=== PATIENT | female | born 1955 | race Caucasian/White ===

== ENCOUNTER 2017-09-27 14:00 | Emergency (ER) | payer BC ==
--- NOTE | 2017-09-27 14:42 | EDM.PDOC ---
ED HPI GENERAL MEDICAL PROBLEM - General Chief Complaint: Upper Extremity Injury/Pain Stated Complaint: LEFT SIDED NUMBNESS AND TINGLING Time Seen by Provider: 09/27/17 14:08 - History of Present Illness INITIAL COMMENTS - FREE TEXT/NARRATIVE: HISTORY AND PHYSICAL: History of present illness: The patient is a 62 year-old female with a history of hypertension and fibromyalgia who also has arthritides and follows with Dr. Silvestre, as well as with Dr. Dasilva at [facility] and Yvonne our nurse practitioner in our clinic and presents today with an episode of spastic movement of her left forearm and hand associated with numbness and tingling which lasted about 2 minutes the patient says she had a normal morning and was at [employer] when this occurred and she has had no systemic complaints previously of fever chills chest pain shortness of breath abdominal pain neurosensory changes weakness head neck or back pain. When it started to occur she had no head or neck pain and she felt she could not control her forearm and hand but it did not involve her proximal left arm or shoulder. She said it was not particularly painful but it was awkward and stressful. The symptoms abated and have not returned and she has no pain numbness tingling or neurosensory changes/weakness in her left upper extremity. When specifically asked if the sensation changes or in a stripe -like fashion or circumferential she says she cannot answer. She did not feel that her forearm and hand were week she just felt like they were spastic and she could not control them. This symptomatology did not occur on her right side or in her legs and she felt dizzy lightheaded nor did she pass out or blackout. 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 She does not smoke or do any street drugs and she only occasionally drinks beer. She's been eating and drinking normally. She says that with her motorcycle training she has had some falls on the bike but nothing she saw a provider for nor did she hit her head or directly impact her neck. She has no known back or neck problems and no disc disease that she is aware of. The patient's takes gabapentin as prescribed for her fibromyalgia and in the past her fibromyalgia has not manifested with these types of symptoms. Really she is asymptomatic. Review of systems: As per history of present illness and below otherwise all systems reviewed and negative. Past medical history: As per history of present illness and as reviewed below otherwise noncontributory. Surgical history: As per history of present illness and as reviewed below otherwise noncontributory. Social history: No reported history of drug or alcohol abuse. Family history: As per history of present illness and as reviewed below otherwise noncontributory. Physical exam: General: Well-developed well-nourished female who is nontoxic who is speaking clearly and easily in ED and vital signs are noted by me. HEENT: Atraumatic, normocephalic, pupils reactive, negative for conjunctival pallor or scleral icterus, mucous membranes moist, throat clear, neck supple, nontender, trachea midline. There is no evidence of any facial droop EOMs are intact and there is no cervical adenopathy or nuchal rigidity Lungs: Clear to auscultation, breath sounds equal bilaterally, chest nontender. Heart: S1S2, regular, and rhythm no overt NABS Negative for costovertebral tenderness. Pelvis: Deferred Genitourinary: Deferred. Rectal: Deferred. Extremities: Atraumatic full range of motion without defects or deficits and there is no visible evidence of any swelling compartment changes erythema warmth skin changes or bony changes of the left upper extremity. The legs are, negative for cords or calf pain. Neurovascular unremarkable. Neuro: Awake, alert, oriented. Cranial nerves II through XII unremarkable. Cerebellum unremarkable. Motor and sensory unremarkable throughout. Exam nonfocal. There is no evidence of any facial changes or facial droop, speech changes, motor is 5/5 throughout and sensory is grossly intact. There is normal tone throughout all extremities. 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 He have not recurred. We will go ahead and do a CT scan of the C-spine looking for bony changes arthritic changes that can be identified that may be contributing to a nerve root pathology but they are aware that going down the line in evaluating this further she may need an MRI of the C-spine as well as the brain. We will check electrolytes. Patient does not have any discomfort at this time and has a provider, Dr. Dasilva, that she can see this week for further evaluation of these events. She is already on gabapentin at a dose she is comfortable with. I discussed the CT scan and lab test results patient. It appears that she does have significant degenerative changes in her C-spine more prominently on the left as well as narrowed disc heights. She understands that there is no emergent reason to address this today but that should be addressed sometime this week with Dr. Dasilva in the clinic and an MRI as an outpatient should be scheduled. We discussed doing a short burst of steroids but she feels uncomfortable with new medications as she has had heightened sensitivities to medications in general. I have stressed reasons to return to the ED and to do all activities more slowly and if there is any tingling numbness pain or spasm that she should stop doing that activity. Impression: Episode of spastic movement of left forearm and hand with paresthesia, resolved prior to admission, advanced degenerative changes of the C-spine Definitive disposition and diagnosis as appropriate pending reevaluation and review of above. - Related Data Allergies Allergy/AdvReac Type Severity Reaction Status Date / Time No Known Allergies Allergy Verified 09/27/17 14:08 Home Meds: Home Meds Cyanocobalamin/FA/Pyridoxine [Folbic] 2.5 mg PO DAILY 09/27/17 [History] DULoxetine [Cymbalta] 1 cap PO DAILY 09/27/17 [History] Gabapentin [Neurontin] 600 mg PO TID 09/27/17 [History] Losartan [Cozaar] 50 mg PO DAILY 09/27/17 [History] Meloxicam 7.5 mg PO BID 09/27/17 [History] Theanine [l-Theanine] 200 mg PO DAILY 09/27/17 [History] Past Medical History HEENT History: Reports: Impaired Vision, Other (See Below) Other HEENT History: wears glasses Cardiovascular History: Reports: Heart Murmur, Hypertension Other Cardiovascular History: states has "rt atrial enlargement" Respiratory History: Reports: None Gastrointestinal History: Reports: None Genitourinary History: Reports: None 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: Musculoskeletal History: Reports: Back Pain, Chronic, Fibromyalgia, RA Neurological History: Reports: None Psychiatric History: Reports: Depression Endocrine/Metabolic History: Reports: Osteoporosis Hematologic History: Reports: None Immunologic History: Reports: None Oncologic (Cancer) History: Reports: None Dermatologic History: Reports: None - Infectious Disease History Infectious Disease History: Reports: Chicken Pox, Mumps - Past Surgical History Head Surgeries/Procedures: Reports: None HEENT Surgical History: Reports: None Cardiovascular Surgical History: Reports: None Respiratory Surgical History: Reports: None GI Surgical History: Reports: Appendectomy Female Surgical History: Reports: Hysterectomy Endocrine Surgical History: Reports: None Neurological Surgical History: Reports: None Musculoskeletal Surgical History: Reports: None Oncologic Surgical History: Reports: None Dermatological Surgical History: Reports: None Social & Family History - Family History Family Medical History: Noncontributory Review of Systems - Review of Systems Review Of Systems: ROS reveals no pertinent complaints other than HPI. ED EXAM, GENERAL - Physical Exam Exam: See Below (See dictation) Course - Vital Signs Last Recorded V/S: Last Vital Signs Temp 36.3 C 09/27/17 15:25 Pulse 65 09/27/17 15:25 Resp 18 09/27/17 15:25 BP 136/79 09/27/17 15:25 Pulse Ox 97 09/27/17 15:25 - Orders/Labs/Meds Orders: Active Orders 24 hr Category Date Time Status EKG Documentation Completion [RC] STAT Care 09/27/17 14:31 Active Cervical Spine wo Cont [CT] Stat Exams 09/27/17 14:32 Taken UA W/MICROSCOPIC [URIN] Stat Lab 09/27/17 15:22 Ordered Labs: Laboratory Tests 09/27/17 09/27/17 09/27/17 Range/Units 14:40 14:40 15:22 WBC 7.18 (4.0-11.0) K/uL RBC 4.93 (4.30-5.90) M/uL Hgb 14.6 (12.0-16.0) g/dL Hct 43.1 (36.0-46.0) % MCV 87.4 (80.0-98.0) fL MCH 29.6 (27.0-32.0) pg MCHC 33.9 (31.0-37.0) g/dL RDW Std Deviation 42.9 (28.0-62.0) fl RDW Coeff of Luis Daniel 14 (11.0-15.0) % Plt Count 231 (150-400) K/uL MPV 10.70 (7.40-12.00) fL Neut % (Auto) 57.0 (48.0-80.0) % Lymph % (Auto) 33.0 (16.0-40.0) % Elliott % (Auto) 7.7 (0.0-15.0) % Eos % (Auto) 1.9 (0.0-7.0) % Baso % (Auto) 0.4 (0.0-1.5) % Neut # (Auto) 4.1 (1.4-5.7) K/uL Lymph # (Auto) 2.4 (0.6-2.4) K/uL Elliott # (Auto) 0.6 (0.0-0.8) K/uL Eos # (Auto) 0.1 (0.0-0.7) K/uL Baso # (Auto) 0.0 (0.0-0.1) K/uL Nucleated RBC % 0.0 /100WBC Nucleated RBCs # 0 K/uL Sodium 139 (136-145) mmol/L Potassium 4.0 (3.5-5.1) mmol/L Chloride 103 (98-107) mmol/L Carbon Dioxide 27.4 (21.0-32.0) mmol/L BUN 21 H (7.0-18.0) mg/dL Creatinine 0.8 (0.6-1.0) mg/dL Est Cr Clr Drug Dosing 61.86 mL/min Estimated GFR (MDRD) > 60.0 ml/min Glucose 94 (74-106) mg/dL Calcium 9.2 (8.5-10.1) mg/dL Magnesium 1.9 (1.5-2.0) mg/dL Total Bilirubin 0.4 (0.2-1.0) mg/dL AST 17 (15-37) IU/L ALT 29 (14-63) IU/L Alkaline Phosphatase 54 (46-116) U/L Total Protein 6.9 (6.4-8.2) g/dL Albumin 3.9 (3.4-5.0) g/dL Globulin 3.0 (2.0-3.5) g/dL Albumin/Globulin Ratio 1.3 (1.3-2.8) Urine Color YELLOW Urine Appearance CLEAR Urine pH 6.0 (5.0-8.0) Ur Specific Rockledge 1.020 (1.001-1.035) Urine Protein NEGATIVE (NEGATIVE) mg/dL Urine Glucose (UA) NEGATIVE (NEGATIVE) mg/dL Urine Ketones NEGATIVE (NEGATIVE) mg/dL Urine Occult Blood NEGATIVE (NEGATIVE) Urine Nitrite NEGATIVE (NEGATIVE) Urine Bilirubin NEGATIVE (NEGATIVE) Urine Urobilinogen 0.2 (<2.0) EU/dL Ur Leukocyte Esterase NEGATIVE (NEGATIVE) Urine RBC 0-1 (0-2/HPF) Urine WBC 0-1 (0-5/HPF) Ur Epithelial Cells FEW (NONE-FEW) Urine Bacteria RARE (NEGATIVE) Departure - Departure Time of Disposition: 15:47 Disposition: Home, Self-Care 01 Condition: Good Clinical Impression: Paresthesia of arm, Abnormal motor activity - Discharge Information Forms: ED Department Discharge Additional Instructions: The following information is given to patients seen in the emergency department who are being discharged to home. This information is to outline your options for follow-up care. We provide all patients seen in our emergency department with a follow-up referral. The need for follow-up, as well as the timing and circumstances, are variable depending upon the specifics of your emergency department visit. If you don't have a primary care physician on staff, we will provide you with a referral. We always advise you to contact your personal physician following an emergency department visit to inform them of the circumstance of the visit and for follow-up with them and/or the need for any referrals to a consulting specialist. The emergency department will also refer you to a specialist when appropriate. This referral assures that you have the opportunity for followup care with a specialist. All of these measure are taken in an effort to provide you with optimal care, which includes your followup. Under all circumstances we always encourage you to contact your private physician who remains a resource for coordinating your care. When calling for followup care, please make the office aware that this follow-up is from your recent emergency room visit. If for any reason you are refused follow-up, please contact the [facility] emergency department at and ask to speak to the emergency department charge nurse. [facility] [address] [place] [address] [facility] Primary [facility]- [facility] Medicine and [facility] [address] [place] [id number] Please contact your provider Dr. Dasilva at [facility] to discuss further testing such as MRI of your neck as we discussed. Do all activities with her upper body slowly and stop with any signs of numbness tingling or weakness or pain. Return to ER as needed as discussed. Continue all home medication - My Orders Last 24 Hours: My Active Orders 09/27/17 14:31 EKG Documentation Completion [RC] STAT 09/27/17 14:32 Cervical Spine wo Cont [CT] Stat 09/27/17 15:22 UA W/MICROSCOPIC [URIN] Stat - Assessment/Plan Last 24 Hours: My Active Orders 09/27/17 14:31 EKG Documentation Completion [RC] STAT 09/27/17 14:32 Cervical Spine wo Cont [CT] Stat 09/27/17 15:22 UA W/MICROSCOPIC [URIN] Stat
[2017-09-27 15:09] LABS: CHLORIDE,CL 103 mmol/L (98-107); SODIUM,NA 139 mmol/L (136-145)
[2017-09-27 17:09] VITALS: BP 130/76
--- NOTE | 2017-09-29 13:14 | CT ---
EXAM DATE: 09/27/17 PATIENT'S AGE: 62 Patient: SHAINA SEBASTIAN Facility: [place], [place] Site . Site : 1955 Study: CT Spine Cervical wo cont [id number]/[id number] 3:09:42 PM Ordering Physician: Marcia Marcus Final Report: Indication: Neck pain. Left-sided numbness Technique: Noncontrast axial CT of the cervical spine with coronal and sagittal reformats are provided. No comparisons. Findings: The overall stature, alignment of the cervical spine is within normal limits. No convincing evidence of suspicious bony fragments narrowing the central canal or neural foramina. Prevertebral soft tissues, cervical airway, dens and lateral masses are within normal limits. There is notable severe left C5-6 and C6-7 foraminal narrowing due to asymmetric uncovertebral joint and facet arthropathy. Central canal appears patent throughout the visualized cervical spine. Milder degenerative changes scattered throughout the remainder of the cervical spine. Impression: 1. No convincing radiographic evidence of acute osseous injury. 2. Severe left C5-6 and C6-7 foraminal narrowing. 3. Mild degenerative changes scattered throughout the remainder of the cervical spine. Please note that all CT scans at this facility use dose modulation, iterative reconstruction, and/or weight-based dosing when appropriate to reduce radiation dose to as low as reasonably achievable. Dictated by El Brooke MD @ Sep 27 2017 7:42PM (Electronic Signature) Report Signed by Proxy. PEPITO
== END 2017-09-27 16:00 | disposition home or self-care (01) ==
LOC: MW.ED 14:00
DX: R20.2 Paresthesia of skin (principal); R29.818 Other symptoms and signs involving the nervous system; I10 Essential (primary) hypertension
CPT/HCPCS: 36415; 72125; 72125-26; 80053; 81001; 83735; 85025; 93005; 99283; 99284-25

== ENCOUNTER 2020-11-22 06:33 | Day surgery (SDC) | payer BC ==
[~2020-11-22 06:33] MED LIST: Lactated Ringers 1,000 ML IV SCH; Sodium Chloride 0.9% 10 ML SDV IV PRN; Sodium Chloride 0.9% 10 ML Syringe FLUSH PRN; Sodium Chloride 0.9% 2.5 ML Syringe FLUSH PRN
[2020-11-22] MEDS ORDERED: propofoL 50 ML ONE (07:05)
[2020-11-22] MEDS ORDERED: fentaNYL 100 MCG/2 ML SDV ONE (07:11)
--- NOTE | 2020-11-22 07:34 | PCM.PREANE ---
Preanesthetic Assessment - Anesthesia/Transfusion/Family Hx Anesthesia History: Prior Anesthesia Without Reaction Transfusion History: No Prior Transfusion(s) Intubation History: Unknown - Physical Assessment NPO Status Date: 11/21/20 NPO Status Time: 20:00 Vital Signs: Last Vital Signs Temp 97.3 F 11/22/20 06:48 Pulse 66 11/22/20 06:48 Resp 16 11/22/20 06:48 BP 126/72 11/22/20 06:48 Pulse Ox 97 11/22/20 06:48 Height: 5 ft 3 in Weight: 72.121 kg ASA Class: 2 Airway Class: Mallampati = 2 Thyro-Mental Finger Breadths: 3 Mouth Opening Finger Breadths: 3 - Allergies Allergies/Adverse Reactions: Allergies Allergy/AdvReac Type Severity Reaction Status Date / Time prednisone Allergy Rash Verified 11/16/20 10:02 Sulfa (Sulfonamide Allergy Anaphylactic Verified 11/16/20 10:02 Antibiotics) Shock - Acknowledgements Anesthesia Type Planned: General Anesthesia Pt an Appropriate Candidate for the Planned Anesthesia: Yes Alternatives and Risks of Anesthesia Discussed w Pt/Guardian: Yes Pt/Guardian Understands and Agrees with Anesthesia Plan: Yes PreAnesthesia Questionnaire HEENT History: Reports: Impaired Vision, Other (See Below) Other HEENT History: wears glasses, dental implants Cardiovascular History: Reports: Heart Murmur, Hypertension Other Cardiovascular History: "slight murmur" Respiratory History: Reports: None Gastrointestinal History: Reports: Diverticulosis, Hemorrhoids Genitourinary History: Reports: None 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: Musculoskeletal History: Reports: Back Pain, Chronic, Fibromyalgia, Neck Pain, Chronic, Osteoarthritis, RA Neurological History: Reports: None Psychiatric History: Reports: Anxiety Endocrine/Metabolic History: Reports: Osteopenia Hematologic History: Reports: None Immunologic History: Reports: None Oncologic (Cancer) History: Reports: Basal Cell Carcinoma Other Oncologic History: basal cell ca removed from face Dermatologic History: Reports: None - Infectious Disease History Infectious Disease History: Reports: Chicken Pox, Mumps - Past Surgical History Head Surgeries/Procedures: Reports: None HEENT Surgical History: Reports: Tonsillectomy Cardiovascular Surgical History: Reports: None Respiratory Surgical History: Reports: None GI Surgical History: Reports: Appendectomy, Colonoscopy Female Surgical History: Reports: Hysterectomy, Salpingo-Oophorectomy, Other (See Below) Other Female Surgeries/Procedures: multiple laparoscopies "all female related" Endocrine Surgical History: Reports: None Neurological Surgical History: Reports: None Musculoskeletal Surgical History: Reports: Arthroscopic Knee, Other (See Below) Other Musculoskeletal Surgeries/Procedures:: trigger finger release on all her fingers, surgery on left arm and wrist, right knee arthroscopy Oncologic Surgical History: Reports: None Dermatological Surgical History: Reports: None, Skin Biopsy - SUBSTANCE USE Tobacco Use Status *Q: Former Tobacco User Tobacco Use Within Last Twelve Months: No - HOME MEDS Home Medications: Home Meds DULoxetine [Cymbalta] 60 mg PO DAILY 09/27/17 [History] Gabapentin [Neurontin] 600 mg PO TID 09/27/17 [History] Meloxicam 7.5 mg PO BID 09/27/17 [History] C/Sourcherry/Celery/Grape Seed [Tart Bailey] 1 tab PO DAILY 11/16/20 [History] Cholecalciferol (Vitamin D3) [Vitamin D3] 5,000 units PO DAILY 11/16/20 [History] Cyanocobalamin/Folic AC/Vit B6 [Niva-Fol Tablet] 1 tab PO DAILY 11/16/20 [History] Evening Robinson Oil 500 mg PO DAILY 11/16/20 [History] Glycerin/Min Oil/Polycarbophil [Replens Vaginal Applicator] 1 applic VAG ASDIRECTED 11/16/20 [History] Losartan Potassium 50 mg PO DAILY 11/16/20 [History] Theanine [l-Theanine] 100 mg PO DAILY 11/16/20 [History] Vitamin B Complex 1 tab PO DAILY 11/16/20 [History] activated charcoaL [Charcoal, Activated] 260 mg PO DAILY 11/16/20 [History] hydroCHLOROthiazide [Hydrochlorothiazide] 12.5 mg PO DAILY 11/16/20 [History] - CURRENT (IN HOUSE) MEDS Current Meds: Current Medications Lactated Ringer's (Ringers, Lactated) 1,000 mls @ 125 mls/hr IV ASDIRECTED LIAM Last Admin: 11/22/20 06:56 Dose: 125 mls/hr Documented by: Sodium Chloride (Sodium Chloride 0.9% 10 Ml Syringe) 10 ml FLUSH ASDIRECTED PRN PRN Reason: Keep Vein Open Sodium Chloride (Sodium Chloride 0.9% 2.5 Ml Syringe) 2.5 ml FLUSH ASDIRECTED PRN PRN Reason: Keep Vein Open Sodium Chloride (Sodium Chloride 0.9% 10 Ml Syringe) 10 ml FLUSH ASDIRECTED PRN PRN Reason: Keep Vein Open Sodium Chloride (Sodium Chloride 0.9% 2.5 Ml Syringe) 2.5 ml FLUSH ASDIRECTED PRN PRN Reason: Keep Vein Open Sodium Chloride (Sodium Chloride 0.9% 10 Ml Sdv) 10 ml IV ASDIRECTED PRN PRN Reason: IV Use Discontinued Medications Fentanyl (Fentanyl 100 Mcg/2 Ml Sdv) Confirm Administered Dose 100 mcg .ROUTE .STK-MED ONE Stop: 11/22/20 07:12 Propofol (Diprivan 50 Ml) Confirm Administered Dose 50 mls @ as directed .ROUTE .STK-MED ONE Stop: 11/22/20 07:06 Lidocaine HCl (Lidocaine 1% 5 Ml Sdv) Confirm Administered Dose 5 ml .ROUTE .STK-MED ONE Stop: 11/22/20 07:12
--- NOTE | 2020-11-22 08:44 | PCM.OPNOTE ---
- General Post-Op/Procedure Note Date of Surgery/Procedure: 11/22/20 Operative Procedure(s): Diagnostic colonoscopy Findings: Grade 4 hemorrhoids, diverticulosis Pre Op Diagnosis: BRBPR Post-Op Diagnosis: Hemorrhoids, diverticulosis Anesthesia Technique: SUMMER Primary Surgeon: Laquita Alanis Condition: Good
--- NOTE | 2020-11-22 08:44 | PCM.POSTAN ---
POST ANESTHESIA ASSESSMENT - VITAL SIGNS Vital Signs: Last Vital Signs Temp 97.3 F 11/22/20 06:48 Pulse 66 11/22/20 06:48 Resp 16 11/22/20 06:48 BP 126/72 11/22/20 06:48 Pulse Ox 97 11/22/20 06:48
--- NOTE | 2020-11-22 08:44 | PCM48HPAN ---
Post Anesthesia Note - EVALUATION WITHIN 48HRS OF ANESTHETIC Vital Signs in Normal Range: Yes Patient Participated in Evaluation: Yes Respiratory Function Stable: Yes Airway Patent: Yes Cardiovascular Function Stable: Yes Hydration Status Stable: Yes Pain Control Satisfactory: Yes Nausea and Vomiting Control Satisfactory: Yes Mental Status Recovered: Yes Vital Signs: Last Vital Signs Temp 97.3 F 11/22/20 06:48 Pulse 66 11/22/20 06:48 Resp 16 11/22/20 06:48 BP 126/72 11/22/20 06:48 Pulse Ox 97 11/22/20 06:48
[2020-11-22 08:52] VITALS: BP 115/55; PULSE 63
--- NOTE | 2020-11-22 12:59 | OR ---
SURGEON: LAQUITA ALANIS MD DATE OF PROCEDURE: 11/22/2020 PREOPERATIVE DIAGNOSIS: Bright red bleeding per rectum. POSTOPERATIVE DIAGNOSES: Hemorrhoids, diverticulosis. PROCEDURE PERFORMED: Diagnostic colonoscopy. PRIMARY SURGEON: Laquita Alanis MD ANESTHESIA: MAC. INSTRUMENT USED: Olympus colonoscope. EXTENT OF THE EXAM: To the cecum. PREPARATION: Good. LIMITATIONS: None. INDICATIONS FOR EXAMINATION: The patient is a 65-year-old female who presents with a change in her bowel habits. She has been having some bright red bleeding per rectum. The decision was made to proceed with diagnostic colonoscopy. I explained the procedure, expected perioperative course, and the risks. The patient verbalized understanding and wishes to proceed. PROCEDURE IN DETAIL: The patient was brought to the endoscopy suite and placed in the left lateral decubitus position. A time-out was completed verifying the patient's name, age, date of , allergies, and procedure to be performed. Monitored anesthesia care was induced and continuous oxygen was provided via nasal cannula throughout the procedure. After adequate sedation was achieved, a digital rectal exam was performed. This exam was within normal limits. A well-lubricated colonoscope was inserted in the rectum and advanced under direct visualization to the level of the cecum. The cecum was identified by both visual and anatomic landmarks. A photograph was taken of the cecal cap; however, I was unable to retroflex the scope within the cecum due to looping of the scope more proximally. The scope was fully withdrawn while examining the color, texture, anatomy, and integrity of the mucosa from the cecum to the anal canal. The patient was found to have some scattered diverticula within the sigmoid colon. At the rectum, the patient was noted to have some grade 4 hemorrhoids. The scope was retroflexed within the rectum to allow visualization of the anal canal opening, which again confirmed enlarged hemorrhoids. A photograph was taken. The scope was straightened out and fully withdrawn. The cecum to anus time was 7 minutes. The patient tolerated the procedure well and was transferred to the PACU in stable condition. ENDOSCOPIC DIAGNOSES: Diverticulosis, hemorrhoids. RECOMMENDATIONS: Follow up in clinic in 2 weeks. LUCY CHO /[id number]
== END 2020-11-22 09:14 | disposition home or self-care (01) ==
LOC: MW.SDS 06:33
PROVIDERS: ATTEND Surgery
DX: K57.31 Diverticulosis of large intestine without perforation or abscess with bleeding (principal); K64.3 Fourth degree hemorrhoids; I10 Essential (primary) hypertension; M81.0 Age-related osteoporosis without current pathological fracture; Z88.8 Allergy status to other drugs, medicaments and biological substances; Z88.2 Allergy status to sulfonamides; Z79.899 Other long term (current) drug therapy; Z90.49 Acquired absence of other specified parts of digestive tract; Z98.890 Other specified postprocedural states; Z87.891 Personal history of nicotine dependence
CPT/HCPCS: 45378; J2704; J3010; J7120; 00811

== ENCOUNTER 2021-01-17 11:54 | Emergency (ER) | payer BC ==
[2021-01-17] MEDS ORDERED: Ketorolac 15 MG/ML SDV IM ONE (13:50)
--- NOTE | 2021-01-17 14:07 | CR ---
INDICATION: Injury. TECHNIQUE: Three views of the right knee. COMPARISON: 09/24/2027 IMPRESSION: Joint effusion is noted. Again seen is a small ossicle/loose body in the anterior joint recess. No fracture, subluxation or dislocation. Mild medial tibiofemoral and patellofemoral compartment DJD are again noted. Dictated by Avel Orellana MD @ 01/17/2021 2:05:46 PM Dictated by: Avel Orellana MD @ 01/17/2021 14:06:01 (Electronically Signed)
--- NOTE | 2021-01-17 14:28 | EDM.PDOC ---
ED HPI GENERAL MEDICAL PROBLEM - General Chief Complaint: Lower Extremity Injury/Pain Stated Complaint: FELL ON R KNEE/PREV TORN MENISCUS Time Seen by Provider: 01/17/21 13:06 - History of Present Illness INITIAL COMMENTS - FREE TEXT/NARRATIVE: CHIEF COMPLAINT(S): Right knee pain HISTORY OF PRESENT ILLNESS: This is a 65-year-old woman with a past medical history of right knee arthritis and prior meniscal injury in this right knee who comes to the emergency department with a chief complaint of right knee pain. The patient states that she has been experiencing right knee pain for the last 4 to 5 days. She states that she does not know if she twisted it or injured it. She states that she mainly started it when she stepped out of a car. She states that she is able to ambulate on it however not well. She states that today she experienced a loud crack and pop with increased pain on the back of her knee. She describes the pain as sharp and achy rated 10 out of 10 without any radiation. There is no numbness or tingling. She states that her pain is currently 7 out of 10. There is no numbness or tingling. She denies any fevers, chills, immunosuppression or IV drug use. She denies any redness, warmth. She states that she just recently had right wrist surgery so her has been taking care of her. She did use ice without any relief and has not yet tried any pain medications for it. She denies any other injury. Pain is exacerbated by movement. There are no relieving factors. REVIEW OF SYSTEMS: Constitutional: Denies fever, chills. Skin:Denies a rash MSK: Positive for right knee pain Neurological: Denies blurred vision, numbness, tingling, weakness PAST MEDICAL HISTORY: As per history of present illness and as reviewed below otherwise noncontributory. SURGICAL HISTORY: As per history of present illness and as reviewed below otherwise noncontributory. SOCIAL HISTORY: As per history of present illness and as reviewed below otherwise noncontributory. FAMILY HISTORY: As per history of present illness and as reviewed below otherwise noncontributory. EXAMINATION OF ORGAN SYSTEMS/BODY AREAS: Constitutional: Blood pressure is 134/76, heart rate 87, respiratory rate 18 with an oxygen saturation 98% on room air. Temperature 36.8 General: Overall well-appearing woman who is in no acute distress Psychiatric: Appropriate mood and affect. Eyes: No scleral icterus or conjunctival erythema Cardiovascular: Regular, rate, and rhythm. No gallops, murmurs, or rubs. Bilateral lower extremity pulses symmetric and intact. Capillary refill less than 2 seconds Respiratory: Lungs clear to auscultation bilaterally. No wheezes, rales, or rhonchi. Musculoskeletal: Decreased in the motion of the right knee secondary to pain. As compared to the left there is no obvious swelling. The joint does not appear warm or swollen. The patient can flex and extend however slowly. There is tenderness posteriorly without any bruising or deformity. Skin: No lesions or abrasions. Neurological: Alert, GCS 15 distal sensation is MEDICAL DECISION MAKING AND COURSE IN THE ED WITH INTERPRETATION/REVIEW OF DIAGNOSTIC STUDIES: This is a 65-year-old woman with a past medical history of right knee pain, arthritis, and prior meniscal injury who comes to the emergency department with acute right knee pain without any obvious deformity on examination without any swelling, warmth, redness who can fully range the knee in flexion and extension who has normal vital signs. At this time we will obtain a x-ray for evaluation. We will try the patient with Toradol for pain relief. The radiological images were viewed by myself along with reading the report from the radiologist. Right knee x-ray does not reveal any fracture or dislocation. There is a small joint effusion. There is a small loose body in the anterior joint recess as seen before. Mild medial tibiofemoral and patellofemoral compartment DJD are again noted. I did discuss the results with the patient. At this time I discussed with her that she should use ice, Tylenol, meloxicam, and elevation. She is to follow-up with orthopedics within 5 to 7 days. She was given strict return precautions. She was amenable to discharge and had no further questions DISPOSITION: The patient was discharged home in stable condition. The patient will follow up with orthopedics in 5 to 7 days CONDITION: Fair PROCEDURES: None FINAL IMPRESSION(S)/DIAGNOSES: 1. Acute on chronic right knee pain suspect osteoarthritis Corey Goldsmith M.D. Right knee Pain Score (Numeric/FACES): 6 - Related Data Allergies Allergy/AdvReac Type Severity Reaction Status Date / Time prednisone Allergy Rash Verified 01/17/21 12:59 Sulfa (Sulfonamide Allergy Anaphylactic Verified 01/17/21 12:59 Antibiotics) Shock Home Meds: Home Meds DULoxetine [Cymbalta] 60 mg PO DAILY 09/27/17 [History] Gabapentin [Neurontin] 600 mg PO TID 09/27/17 [History] Meloxicam 7.5 mg PO BID 09/27/17 [History] Losartan Potassium 50 mg PO DAILY 11/16/20 [History] hydroCHLOROthiazide [Hydrochlorothiazide] 12.5 mg PO DAILY 11/16/20 [History] Cyanocobalamin/FA/Pyridoxine [Folbic] 1 tab PO DAILY 01/17/21 [History] Past Medical History HEENT History: Reports: Impaired Vision, Other (See Below) Other HEENT History: wears glasses, dental implants Cardiovascular History: Reports: Heart Murmur, Hypertension Other Cardiovascular History: "slight murmur" Respiratory History: Reports: None Gastrointestinal History: Reports: Diverticulosis, Hemorrhoids Genitourinary History: Reports: None [employer] History: Reports: Musculoskeletal History: Reports: Back Pain, Chronic, Fibromyalgia, Neck Pain, Chronic, Osteoarthritis, RA Neurological History: Reports: None Psychiatric History: Reports: Anxiety Endocrine/Metabolic History: Reports: Osteopenia Hematologic History: Reports: None Immunologic History: Reports: None Oncologic (Cancer) History: Reports: Basal Cell Carcinoma Other Oncologic History: basal cell ca removed from face Dermatologic History: Reports: None - Infectious Disease History Infectious Disease History: Reports: Chicken Pox, Mumps - Past Surgical History Head Surgeries/Procedures: Reports: None HEENT Surgical History: Reports: Tonsillectomy Cardiovascular Surgical History: Reports: None Respiratory Surgical History: Reports: None GI Surgical History: Reports: Appendectomy, Colonoscopy Female Surgical History: Reports: Hysterectomy, Salpingo-Oophorectomy, Other (See Below) Other Female Surgeries/Procedures: multiple laparoscopies "all female related" Endocrine Surgical History: Reports: None Neurological Surgical History: Reports: None Musculoskeletal Surgical History: Reports: Arthroscopic Knee, Other (See Below) Other Musculoskeletal Surgeries/Procedures:: trigger finger release on all her fingers, surgery on left arm and wrist, right knee arthroscopy Oncologic Surgical History: Reports: None Dermatological Surgical History: Reports: None, Skin Biopsy Social & Family History - Family History Family Medical History: No Pertinent Family History - Tobacco Use Tobacco Use Status *Q: Never Tobacco User - Caffeine Use Caffeine Use: Reports: None - Recreational Drug Use Recreational Drug Use: No Review of Systems - Review of Systems Review Of Systems: See Below ED EXAM, GENERAL - Physical Exam Exam: See Below Course - Vital Signs Last Recorded V/S: Last Vital Signs Temp 36.8 C 01/17/21 13:01 Pulse 87 01/17/21 13:01 Resp 18 01/17/21 13:01 BP 134/76 01/17/21 13:01 Pulse Ox 98 01/17/21 13:01 - Orders/Labs/Meds Meds: Medications Discontinued Medications Generic Name Dose Route Start Last Admin Trade Name Claritza PRN Reason Stop Dose Admin Ketorolac Tromethamine 15 mg 01/17/21 13:50 01/17/21 13:59 Ketorolac 15 Mg/Ml Sdv IM 01/17/21 13:51 15 mg ONETIME ONE Administration Departure - Departure Time of Disposition: 14:26 Disposition: Home, Self-Care 01 Condition: Fair Clinical Impression: Knee pain, Loose body in knee - Discharge Information *PRESCRIPTION DRUG MONITORING PROGRAM REVIEWED*: No *COPY OF PRESCRIPTION DRUG MONITORING REPORT IN PATIENT SERGIO: No Instructions: Knee Sprain, Adult, [id number], Acute Knee Pain, Adult, [id number] Referrals: Jeffery Dasilva MD [Primary Care Provider] - Forms: ED Department Discharge Additional Instructions: You were evaluated today on an emergent basis. At this time your knee x-ray did not reveal any fractures. There was evidence of some small fluid in the joint and a loose body as we discussed. There is some arthritis also. I recommend you use Tylenol and your meloxicam alternating for the next 2 days and then as needed after that. I recommend you ice and elevate this right knee. As discussed I would like you to follow-up with orthopedics within 5 to 7 days for reevaluation. If you have any fever, redness, your knee feels warm or you are concerned you are welcome to return to the emergency department. Please use: Tylenol 500-1000mg every 6 hours (DO NOT TAKE MORE THAN 4000mg in 1 day) In addition to Tylenol and Motrin you may use over the counter creams such as Voltaren Cream or Lidocaine Cream (Lidoderm) as needed 4 times a day for symptomatic relief. Ice the area 20 minutes 4 times per day [facility] [address] [place] [address], [address] [place] [address] The patient is informed of any results of their evaluation and diagnostic workup and all questions are answered. They are given discharge instructions and return precautions. The patient is stable for discharge. The patient states they understand and agree with the plan and that they will return if their symptoms get worse or if they have any new concerns. The following information is given to patients seen in the emergency department who are being discharged to home. This information is to outline your options for follow-up care. We provide all patients seen in our emergency department with a follow-up referral. The need for follow-up, as well as the timing and circumstances, are variable depending upon the specifics of your emergency department visit. If you don't have a primary care physician on staff, we will provide you with a referral. We always advise you to contact your personal physician following an emergency department visit to inform them of the circumstance of the visit and for follow-up with them and/or the need for any referrals to a consulting specialist. The emergency department will also refer you to a specialist when appropriate. This referral assures that you have the opportunity for follow-up care with a specialist. All of these measure are taken in an effort to provide you with optimal care, which includes your follow-up. Under all circumstances we always encourage you to contact your private physician who remains a resource for coordinating your care. When calling for follow-up care, please make the office aware that this follow-up is from your recent emergency room visit. If for any reason you are refused follow-up, please contact the [facility] at and asked to speak to the emergency department charge nurse. Sepsis Event Note (ED) - Evaluation Sepsis Screening Result: No Definite Risk - Focused Exam Vital Signs: Vital Signs Temp Pulse Resp BP Pulse Ox 01/17/21 13:01 36.8 C 87 18 134/76 98
[2021-01-17 14:44] VITALS: BP 128/75; PULSE 62
== END 2021-01-17 14:45 | disposition home or self-care (01) ==
LOC: MW.ED 11:54
DX: M23.41 Loose body in knee, right knee (principal); I10 Essential (primary) hypertension; M06.9 Rheumatoid arthritis, unspecified; Z88.8 Allergy status to other drugs, medicaments and biological substances; Z88.2 Allergy status to sulfonamides; Z79.899 Other long term (current) drug therapy
CPT/HCPCS: 73562; 96372; 99283; J1885

== ENCOUNTER 2021-06-17 21:06 | Emergency (ER) | payer BC ==
[2021-06-17 22:08] VITALS: BP 179/84; PULSE 62
[2021-06-17] MEDS ORDERED: Sodium Chloride 0.9% 1,000 ML IV ONE (23:02)
[2021-06-17] MEDS ORDERED: Sodium Chloride 0.9% 10 ML Syringe FLUSH PRN (23:02)
[2021-06-17] MEDS ORDERED: Sodium Chloride 0.9% 2.5 ML Syringe FLUSH PRN (23:02)
[2021-06-18 00:05] LABS: BLOOD UREA NITROGEN,BUN 23 mg/dL (7.0-18.0); CARBON DIOXIDE,CO2 30.4 mmol/L (21.0-32.0); CHLORIDE,CL 104 mmol/L (98-107); GLUCOSE RANDOM 98 mg/dL (74-106); LIPASE 130 U/L (73-393); POTASSIUM,K 4.3 mmol/L (3.5-5.1); SODIUM,NA 141 mmol/L (136-145)
[2021-06-18] MEDS ORDERED: Iopamidol 755 MG/ML 500 ML Multipack Bottle IVPUSH STA (01:15)
== END 2021-06-18 02:26 | disposition home or self-care (01) ==
LOC: MW.ED 21:06
DX: R07.89 Other chest pain (principal); I10 Essential (primary) hypertension; Z88.2 Allergy status to sulfonamides; Z88.8 Allergy status to other drugs, medicaments and biological substances; Z79.899 Other long term (current) drug therapy
CPT/HCPCS: 36415; 71045; 71275; 80053; 83690; 83735; 84484; 85025; 85379; 93005; 99285; J7030; Q9967